=== PATIENT | male | born 1960 | race Two or more races ===

== ENCOUNTER 2017-03-03 19:37 | Emergency (ER) | payer OTHER ==
[~2017-03-03] VITALS: Ht 167.6 cm; Wt 98.0 kg
[2017-03-03 20:24] VITALS: BP 185/101
[2017-03-03] MEDS ORDERED: LIDOCAINE 1% HCL (LOCAL ANESTH.) INJ 20ML MDV IJ ONE (21:00)
[2017-03-03] MEDS ORDERED: cloNIDine HCL 0.1 MG TAB PO ONE (21:00)
[2017-03-03] MEDS ORDERED: BACITRACIN TOP OINT 1 UD PKG TOP ONE (21:00)
== END 2017-03-03 23:37 | disposition home or self-care (01) ==
LOC: ER 19:40
DX: S61.411A Laceration without foreign body of right hand, initial encounter (principal); E11.9 Type 2 diabetes mellitus without complications; I10 Essential (primary) hypertension; W25.XXXA Contact with sharp glass, initial encounter; Y93.89 Activity, other specified; Y92.89 Other specified places as the place of occurrence of the external cause; Y99.8 Other external cause status
CPT/HCPCS: 12001; 73140; 99284; J2001